=== PATIENT | female | born 1955 | race Caucasian/White ===

== ENCOUNTER 2019-07-08 10:23 | Observation (INO) | payer MEDICAID ==
[~2019-07-08] VITALS: Ht 160 cm; Wt 80.0 kg
[2019-07-08 11:04] LABS: BASOPHILS % (AUTO) 0.9 % (0-1); EOSINOPHILS % (AUTO) 0.8 % (0-6); HEMATOCRIT 46.2 % (35.0-45.0); HEMOGLOBIN 15.9 g/dl (12.0-16.0); LYMPHOCYTES # (AUTO) 1.8 X10'3 (1.1-4.8); LYMPHOCYTES % (AUTO) 39.2 % (21-51); MEAN CORPUSCULAR HEMOGLOBIN 30.4 PG (27.0-31.0); MEAN CORPUSCULAR HGB CONC 34.4 g/dL (33.0-36.5); MEAN CORPUSCULAR VOLUME 88.4 FL (78-98); MEAN PLATELET VOLUME 8.7 FL (7.4-10.4); MONOCYTES # (AUTO) 0.4 X10'3 (0-0.9); NEUTROPHILS # (AUTO) 2.4 X10'3 (1.8-7.7); NEUTROPHILS % (AUTO) 51.1 % (42-75); PLATELET COUNT 166 X10'3 (140-440); RED BLOOD COUNT 5.22 X10'6 (4.20-5.60); RED CELL DISTRIBUTION WIDTH 13.4 % (11.5-14.5); WHITE BLOOD COUNT 4.6 X10'3 (4.5-11.0)
[2019-07-08 11:23] LABS: ALANINE AMINOTRANSFERASE 31 U/L (12-78); ALBUMIN 4.2 G/DL (3.4-5.0); ALBUMIN/GLOBULIN RATIO 1.3 (1.1-1.5); ALKALINE PHOSPHATASE 86 IU/L (46-116); ANION GAP 12 (8-16); ASPARTATE AMINO TRANSFERASE 27 U/L (10-37); BILIRUBIN,TOTAL 0.9 MG/DL (0.1-1.0); BLOOD UREA NITROGEN 12 MG/DL (7-18); BUN/CREATININE RATIO 11.3 (6.6-38.0); CALCIUM 9.4 MG/DL (8.5-10.1); CHLORIDE 107 MMOL/L (99-107); CREATININE 1.06 MG/DL (0.40-0.90); GLUCOSE 115 MG/DL (70-104); POTASSIUM 3.6 MMOL/L (3.5-5.1); SODIUM 144 MMOL/L (135-145); TOTAL CARBON DIOXIDE 24.9 MMOL/L (24-32); TOTAL PROTEIN 7.4 G/DL (6.4-8.2); eGFR 52 ML/MIN
[2019-07-08 11:24] LABS: PARTIAL THROMBOPLASTIN TIME 28 SECONDS (22-32)
[2019-07-08] MEDS ORDERED: LORazepam 2 mg/ml vial IV ONE (12:30)
[2019-07-08] MEDS ORDERED: meclizine 12.5mg tablet PO ONE (12:30)
[2019-07-08] MEDS ORDERED: normal saline 1000ML IV soln IVB ONE (12:30)
[2019-07-08] MEDS ORDERED: DIAZ2TAB PO (13:56)
[2019-07-08] MEDS ORDERED: ONDA8TAB6 PO (13:56)
[2019-07-08] MEDS ORDERED: MECL-111 PO ×2 (13:56→14:53)
[2019-07-08] MEDS ORDERED: ONDA8TAB12 PO (14:53)
[2019-07-08] MEDS ORDERED: GOLD1CAP PO (14:53)
[2019-07-08] MEDS ORDERED: MV-M1TAB22 PO (14:53)
[2019-07-08] MEDS ORDERED: ASPI-611 PO (14:53)
[2019-07-08] MEDS ORDERED: DIAZ2TAB3 PO (14:53)
[2019-07-08] MEDS ORDERED: LORazepam 2 mg/ml vial IV PRN (15:00)
[2019-07-08] MEDS ORDERED: mag hydrox/Alum hydrox/simeth 30ml oral suspension PO PRN (15:00)
[2019-07-08] MEDS ORDERED: acetaminophen 325mg tablet PO PRN (15:00)
[2019-07-08] MEDS ORDERED: ondansetron/PF 4mg/2ml inj IV PRN (15:00)
[2019-07-08] MEDS ORDERED: magnesium hydroxide 30ml (MOM) UD suspension PO PRN (15:00)
[2019-07-08] MEDS: normal saline 1000ml 1,000 ML IV SCH (16:12)
--- NOTE | 2019-07-08 17:45 | NUR ---
Pt arrived, tucked in, report received from Rhonda ROSSI
[2019-07-08] MEDS ORDERED: [UNRECOGNIZED DRUG - OTHER] PO PRN (18:00)
[2019-07-08] MEDS ORDERED: ASPIRIN PO PRN (18:00)
[2019-07-08] MEDS ORDERED: diazepam 2mg tablet PO PRN (18:00)
[2019-07-08] MEDS ORDERED: aspirin 81mg tablet.DR PO PRN (18:05)
[2019-07-08 18:13] VITALS: BP 144/71
--- NOTE | 2019-07-08 18:33 | NUR ---
Problems reprioritized. Patient report given, questions answered & plan of care reviewed with Pat RN.
--- NOTE | 2019-07-08 19:30 | NUR ---
pt denies dizziness when in bed; states "only when up"; instructed not to get up without assistance Addendum: 07/09/19 at 0204 by Jennifer Schroeder RN Amended: Links added.
--- NOTE | 2019-07-08 19:30 | NUR ---
pt informed of need to replace PIV within 24 hrs of IV field start; pt states she wants to hold off, thinking she may go home tomorrow Addendum: 07/09/19 at 0204 by Jennifer Schroeder RN Amended: Links added.
[2019-07-08] MEDS: heparin, porcine 5000 units/ml vial SQ SCH (20:48)
[2019-07-08 22:00] VITALS: BP_SYST 114; BP_SYST 140; BP_SYST 147; BP_DIAS 56; BP_DIAS 69; BP_DIAS 72
[2019-07-09] VITALS (7 sets, daily range): BP systolic 124–149; BP diastolic 55–88
[2019-07-09] MEDS: normal saline 1000ml 1,000 ML IV SCH ×2 (01:46→10:59)
--- NOTE | 2019-07-09 06:10 | NUR ---
Patient in room [facility] 4009. I have received report from LE RN and had the opportunity to ask questions and assume patient care.
[2019-07-09] MEDS: heparin, porcine 5000 units/ml vial SQ SCH ×2 (07:46→19:43)
[2019-07-09] MEDS: meclizine 12.5mg tablet PO PRN ×2 (10:25→19:43)
--- NOTE | 2019-07-09 18:00 | NUR ---
Problems reprioritized. Patient report given, questions answered & plan of care reviewed with SUKHI ROSSI.
--- NOTE | 2019-07-09 18:12 | NUR ---
PAGER ID: [phone] MESSAGE: CRISTIAN [id number] RE: [id number] [place] PT IS STAYING TONIGHT. ADMIT STATUS IS OBSERVATION
[2019-07-10 06:10] VITALS: BP 122/64
--- NOTE | 2019-07-10 06:16 | NUR ---
Problems reprioritized. Patient report given, questions answered & plan of care reviewed with ENID Perez.
--- NOTE | 2019-07-10 06:30 | NUR ---
I have received patient report from Emelia Collazo RN
[2019-07-10 07:30] VITALS: BP_SYST 136; BP_SYST 149; BP_SYST 151; BP_DIAS 74; BP_DIAS 75; BP_DIAS 82
[2019-07-10] MEDS: meclizine 12.5mg tablet PO PRN (07:54)
[2019-07-10] MEDS: heparin, porcine 5000 units/ml vial SQ SCH (07:55)
[2019-07-10 10:00] VITALS: BP 140/81
[2019-07-10] MEDS ORDERED: MECL-111 PO (10:19)
--- NOTE | 2019-07-10 14:15 | NUR ---
Patient discharged at this time via yellow cab. She has all belongings and was taught all discharge medications and to follow up with pcp.
== END 2019-07-10 15:41 | disposition home or self-care (01) ==
LOC: ER 10:23 → ORTHO 4S 17:47 → CMPBEDREQ 19:40
PROVIDERS: ADMIT Family Medicine; ATTEND Family Medicine
DX: R42 Dizziness and giddiness (principal); E86.0 Dehydration; Z79.82 Long term (current) use of aspirin; Z90.49 Acquired absence of other specified parts of digestive tract; R26.9 Unspecified abnormalities of gait and mobility; R11.2 Nausea with vomiting, unspecified
CPT/HCPCS: 36415; 70450; 71045; 80053; 84484; 85025; 85610; 85730; 87081; 93005; 96361; 96372; 96374; 97116; 97161; 97530; 99284; G0378; J1644; J2060; J7030; J8597